=== PATIENT | male | born 1990 | race Caucasian/White ===

== ENCOUNTER 2017-03-13 10:17 | Emergency (ER) | payer OTHER ==
[~2017-03-13] VITALS: Ht 170.2 cm; Wt 78.0 kg
[2017-03-13 11:58] VITALS: BP 126/88
== END 2017-03-13 11:58 | disposition home or self-care (01) ==
LOC: ED 10:17
DX: H92.02 Otalgia, left ear (principal); K12.0 Recurrent oral aphthae